=== PATIENT | male | born 1955 | race Caucasian/White ===

== ENCOUNTER 2022-08-06 17:54 | Emergency (ER) | payer MEDICARE, BC, SELFPAY ==
--- NOTE | ~2022-08-06 | CT_ITS ---
EXAMINATION: CT abdomen pelvis w con DATE: 08/06/2022 19:21 INDICATION: Diffuse abdominal pain, nausea and vomiting TECHNIQUE: Computed tomography (CT) of the abdomen and pelvis was performed with 100 mL Omnipaque-350 intravenous contrast. Automated exposure control and iterative reconstruction technique were employe d. The dose-length product was 551.06 mGy-cm. COMPARISON: CT abdomen dated 04/29/[address] dated 09/14/2018 FINDINGS: Mild to moderate emphysema at the lung bases. No significant change in a 6 mm pleural-based nodule at the periphery of the right middle lobe. Heart size is normal. No pericardial or pleural effusion. Li francie, gallbladder and pancreas are normal. Splenic calcifications consistent with old granulomatous di sease. Chronic nodular thickening of the bilateral adrenal glands which could be due to adrenal hyper plasia or multiple small adenomas. Multiple bilateral renal cysts measuring up to 2.7 cm the left kid juan. Chronic moderate right hydroureteronephrosis with dilation of the tortuous proximal right ureter extending to the level L4-L5 where it lies along side a prior aortic bypass graft. There are several nonobstructing bilateral renal stones, the largest measuring 4 mm in the left kidney. There is chronic aneurysmal dilation of the abdominal aorta which measures up to 4.6 cm diameter at t he level of the renal arteries. There are multiple internal curvilinear calcifications which suggests a prior dissection. There is complete thrombosis of the aorta beginning immediately caudal to the le jesus of the takeoff of the bilateral contrast opacified renal arteries. There is partially collapsed a nd thrombosed aortobiiliac stent graft which is unchanged since 2008. A previously patent more anteri or graft which extend to the left iliac artery bifurcation also now appears collapsed and thrombosed. A prior femoral to femoral bypass graft is been removed. There is a thrombosed bypass graft extendin g along the right chest and abdominal wall to the right common femoral artery which is new since 2008 but which can be seen on CT dated 06/17/2016. The bilateral common, internal and external iliac arteri es are tiny and unable to assess whether the opacified with contrast. Contrast is seen resupplying maryana th of the common femoral arteries via the bilateral hypogastric arteries. Focal mild dilation of the small bowel associated with small bowel anastomosis in the left abdomen. N o dilation of small bowel not directly associated with an anastomosis to suggest obstruction. Normal appendix. Bladder is normal. Prostatomegaly. No free intraperitoneal gas or fluid. There are multiple prominent mesenteric lymph nodes, the largest measuring up to 1.2 cm maximal short axis diameter and which may be reactive. Small fat-containing bilateral inguinal hernias moderate lumbar spondylosis. L5 laminectomy with 6 mm anterolisthesis L5 on S1 and instrumented posterior spinal fusion with bilat eral vertical marilyn and pedicle screw fixation at L5-S1. IMPRESSION: 1. No bowel obstruction or other acute intra-abdominal/pelvic process. 2. 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 Get seen are ch ronically thrombosed aortobiiliac stents, aortic bypass graft and right axillary femoral bypass graft with resupply to the bilateral common femoral arteries appearing to be supplied via the bilateral hy pogastric arteries. 3. Mild to moderate emphysema. 4. Bilateral nonobstructing nephrolithiasis with chronic moderate right hydroureteronephrosis but wit hout associated delayed nephrogram with no evident stone at the transition point which occurs along s gin the aortic bypass graft and may be related to the prior surgery. Reviewed, dictated and finalized at loc
[2022-08-06 17:59] VITALS: BP 114/80; PULSE 115; RESP 18; TEMP 36.6; O2SAT 97
--- NOTE | 2022-08-06 18:11 | PC.NURSE ---
Had emesis upon arrival to room. Pt states he feels better after vomiting. Reports this is the first time he has vomited since pain started.
[2022-08-06] MEDS: SODIUM CHLORIDE 0.9% IV 1,000 ML 999 ML IV CONT (18:23)
--- NOTE | 2022-08-06 18:23 | ED.ABDPAIN ---
HPI - Abdominal Pain General Chief Complaint: Abdominal Pain Stated Complaint: cough/congestion/runny nose with abdominal pain Time Seen by Provider: 08/06/22 18:04 History of Present Illness HPI narrative: Patient is a 66-year-old male with a complicated past medical history and numerous abdominal and vascular surgeries here due to nausea, vomiting, abdominal pain x2 days. Patient states he has been unable to tolerate any p.o. due to nausea and has had very little oral intake. Pain is mild but diffuse across his abdomen and is described as a cramp, coming in waves. Patient did vomit a large amount in the waiting room and he states his abdominal pain has improved somewhat. Reports some diarrhea. Attempted some Tums without relief. Has had no fevers, chills, chest pain, shortness of breath. Has been congested with a runny nose prior to onset of vomiting. Related Data Home Medications Medication Instructions Recorded Confirmed aspirin 81 mg tablet,delayed 81 mg PO DAILY 05/01/19 11/11/19 release gabapentin 600 mg tablet mg TID 08/06/22 Allergies Allergy/AdvReac Type Severity Reaction Status Date / Time No Known Allergies Allergy Unknown Verified 08/06/22 18:07 Review of Systems Review of Systems: Gen: Denies fevers or chills Eyes: Denies eye pain or visual change ENT: Denies congestion Respiratory: Denies shortness of breath or cough CV: Denies chest pain or palpitations GI: Reports abdominal pain, nausea and vomiting and diarrhea : denies burning, urgency, frequency or hematuria Musculoskeletal: Denies back pain or muscle pain Neuro: Denies numbness, tingling, weakness or focal weakness Skin: Denies rash Except as documented, all other systems reviewed and negative [facility] Family History Family History (Updated 09/28/16 @ 13:26 by DOCTOR UNKNOWN) Other Diabetes mellitus Family history of arthritis Social History Social History Smoking status: Former smoker Smoking end date: 03/13/15 Alcohol intake: never Exam Narrative: APPEARANCE: Uncomfortable appearing, actively vomiting Head: Normocephalic and atraumatic. EYES: PERRLA/EOMI, conjunctivae clear NOSE: No nasal drainage EARS: External ear normal in appearance THROAT: Oropharynx is clear. Mucous membranes are moist. NECK: Supple. No adenopathy, no masses. RESPIRATORY: Airway patent, respirations nonlabored. Clear to auscultation bilaterally, no rales, rhonchi, wheezing. CARDIOVASCULAR: Regular rate and rhythm without murmurs, rubs, or gallops. ABDOMINAL: Normoactive bowel sounds. Soft, nontender, nondistended. No rebound tenderness or guarding. MUSCULOSKELETAL: Status post right AKA NEURO: Normal speech. No focal neurologic deficits. SKIN: Skin is warm and dry. No rashes. PSYCHIATRIC: Normal affect/mood. Course Vital Signs Vital signs: Vital Signs Temperature 97.8 F 08/06/22 17:59 Pulse Rate 115 H 08/06/22 17:59 Respiratory Rate 18 08/06/22 17:59 Blood Pressure 114/80 08/06/22 17:59 Pulse Oximetry 97 08/06/22 17:59 Oxygen Delivery Room Air 08/06/22 17:59 Temperature 97.8 F 08/06/22 17:59 Pulse Rate 64 08/06/22 21:04 Respiratory Rate 18 08/06/22 21:04 Blood Pressure 121/87 08/06/22 21:04 Pulse Oximetry 97 08/06/22 17:59 Oxygen Delivery Room Air 08/06/22 17:59 MDM - Abdominal Pain MDM Narrative Medical decision making narrative: 66-year-old male here due to nausea vomiting and diarrhea x3 days, actively vomiting at time of examination. Slight tachycardic to 115 which did improve with IV fluid administrations, no abdominal tenderness on exam. CT abdomen pelvis without acute abdominal findings; does have evidence of numerous vascular procedures done on his abdominal aorta and an abdominal aortic aneurysm measuring 4.7 cm that is stable in size compared to previous examinations. It appears that several of his bypasses have clotted off but these are chronic findings an
[2022-08-06] MEDS: FAMOTIDINE 20 MG/2 ML VIAL IV PUSH (18:24)
[2022-08-06] MEDS: ONDANSETRON INJ 4 MG/2 ML VIAL IV PUSH (18:24)
[2022-08-06 18:30] LABS: Hematocrit 44.2 % (42.0-52.0); Hemoglobin 14.4 g/dL (14.0-18.0); Mean Corpuscular HGB Conc 32.6 g/dl (32-36); Mean Corpuscular Hemoglobin 26.5 pg (26-34); Mean Corpuscular Volume 81.4 fl (80-100); Mean Platelet Volume 9.8 fl (7.4-10.4); Platelet Count Result 293 k/mm3 (150-375); Red Blood Count 5.43 M/mm3 (4.6-6.20); Red Cell Distribution Width 17.9 % (11.5-14.5); White Blood Count 5.8 K/mm3 (4.5-10.0)
[2022-08-06 18:43] LABS: Lactic Acid Reflex 2.1 mmol/L (0.7-2.0)
[2022-08-06 18:44] LABS: Alanine Aminotransferase 21 U/L (6-50); Alkaline Phosphatase 121 U/L (38-126); Anion Gap 12 mmol/L (8-16); Aspartate Amino Transferase 25 U/L (17-59); Bilirubin,Total 0.5 mg/dL (0.2-1.3); Blood Urea Nitrogen 26 mg/dL (9-20); Calcium 8.9 mg/dL (8.4-10.2); Carbon Dioxide 27 mmol/L (22-30); Chloride 99 mmol/L (98-107); Estimated Glomerular Filt Rate > 60; Glucose 124 mg/dL (65-110); Lipase 83 U/L (23-300); Potassium 3.5 mmol/L (3.4-5.0); Sodium 138 mmol/L (137-145)
[2022-08-06 18:45] LABS: Magnesium 1.4 mg/dL (1.6-2.3)
[2022-08-06 19:08] LABS: Anisocytosis 2+ (NORMAL); Band Neutrophils Percent 39 % (0-6); Eosinophils Absolute Manual 0.05 K/mm3 (0.02-0.5); Eosinophils Percent Manual 1 % (0-4); Lymphocytes Absolute Manual 0.87 K/mm3 (1.1-4.5); Monocytes Absolute Manual 0.63 K/mm3 (0.1-0.90); Monocytes Percent Manual 11 % (3-9); Neutrophils Absolute Manual 4.23 K/mm3 (1.3-6.7); Neutrophils Percent Manual 34 % (46-73); Platelet Estimate Adequate (Adequate); Schistocytes None Seen (NORMAL); Total Cells Counted 100
[2022-08-06 19:14] LABS: Influenza A QL RT-PCR Negative (Negative); Influenza B QL RT-PCR Negative (Negative); SARS-CoV-2 RNA PCR Negative (Negative)
[2022-08-06 19:49] LABS: Appearance Urine Clear (Clear); Bacteria Urine None Seen /hpf; Bilirubin Urine Negative (Negative); Blood Urine Trace (Negative); Color Urine Yellow (Yellow); Glucose Urine UA Negative (Negative); Ketones Urine Trace mg/dL (Negative); Leukocyte Esterase Ur Negative LEU/UL (Negative); Nitrate Urine Negative (Negative); Non Pathogenic Casts 0-2; Protein Urine 3+ mg/dL (Negative); Specific Grav Ur 1.024 (1.001-1.035); Squamous Epithelial Cell Urine None seen /hpf (Few); Urobilinogen Urine 0.2 mg/dL (<2.0); WBC Urine 0-5 /hpf; pH Urine 5.5 (5.0-9.0)
[2022-08-06 20:01] LABS: Add Urine Microscopic? YES
[2022-08-06] MEDS: DICYCLOMINE HCL INJ 20 MG/2 ML VIAL IM (20:14)
[2022-08-06 21:04] VITALS: BP 121/87; PULSE 64; RESP 18
[2022-08-06 21:27] LABS: Reflex Lactic Acid Yes or No Add Lactic
== END 2022-08-06 21:06 | disposition home or self-care (01) ==
PROVIDERS: Emergency Provider Physician Assistant; PCP Nurse Practitioner
DX: K52.9 Noninfective gastroenteritis and colitis, unspecified (principal); Z20.822 Contact with and (suspected) exposure to COVID-19
CPT/HCPCS: 36415; 74177; 80053; 81001; 83605; 83690; 83735; 85025; 87636; 96361; 96372; 96374; 96375; 99284; J0500; J2405; J7030; Q9967

== ENCOUNTER 2024-02-27 01:32 | Day surgery (SDC) | payer OTHER, MEDICARE, SELFPAY ==
[2024-02-21 14:20] VITALS: BMI 28.9
--- NOTE | 2024-02-21 14:49 | PC.NURSE ---
Spoke with PATIENT regarding medication PLAVIX. PATIENT verbalizes understanding that the last dose is to be taken on 02/22/2024 and the Endoscopist will instruct them when to restart after the procedure.
[2024-02-27 08:48] VITALS: BP 136/84; PULSE 79; RESP 16; TEMP 36.6; O2SAT 99
--- NOTE | 2024-02-27 08:51 | P.PNAN_ITS ---
Anes - Initial Pre Proc Eval Procedure: Operation Date: 02/27/24 09:30 Proposed Procedures p Screening Colonoscopy - Alex Dickerson MD Date/Time: 02/27/24 08:51 Surgeon: Alex Dickerson MD Pre Op Diagnosis: Neoplasm screening Patient Data Age: 68 Gender: M Height: 1.73 m Weight: 86.3 kg Allergies Allergy/AdvReac Type Severity Reaction Status Date / Time No Known Allergies Allergy Unknown Verified 02/27/24 08:44 Home Medications ?Medication ?Instructions ?Recorded ?Confirmed ?Type aspirin 81 mg tablet,delayed 81 mg PO DAILY 05/01/19 02/27/24 History release atorvastatin 80 mg tablet 80 mg PO DAILY #90 tabs 09/27/19 02/27/24 Rx hydrochlorothiazide 25 mg tablet 25 mg PO DAILY #90 tabs 12/02/19 02/27/24 Rx losartan 100 mg tablet 100 mg PO DAILY #90 tabs 12/02/19 02/27/24 Rx amlodipine 10 mg tablet 10 mg PO DAILY #90 tabs 12/23/19 02/27/24 Rx clopidogrel 75 mg tablet 75 mg PO DAILY #90 tabs 12/23/19 02/27/24 Rx metformin 500 mg tablet 500 mg PO BID #180 tabs 01/29/20 02/27/24 Rx metoprolol tartrate 50 mg tablet See Rx Instructions .Route 01/29/20 02/27/24 Rx .COMPLEX #180 tabs omeprazole 40 mg capsule,delayed 40 mg PO DAILY #90 caps 01/29/20 02/27/24 Rx release dicyclomine 10 mg capsule 10 mg PO TID PRN abdominal pain 08/06/22 02/21/24 Rx #10 caps gabapentin 600 mg tablet 600 mg PO TID 08/06/22 02/27/24 History clobetasol 0.05 % topical ointment 1 applic topical BID PRN eczema 02/21/24 02/21/24 History Patient hx anesthesia problems: none Family hx anesthesia problems: none Results Review: All pre-operative results and documents have been reviewed as part of the pre- operative evaluation. [facility] Past Medical History Medical History Essential (primary) hypertension Dyslipidemia History of tobacco use Surgical History Surgical History (Updated 02/27/24 @ 08:51 by Ronak Bernardo MD) History of abdominal aortic aneurysm repair History of right above knee amputation Family History Family History Other Diabetes mellitus Family history of arthritis Social History Social History (Updated 02/27/24 @ 08:54 by Ronak Bernardo MD) Smoking packs per day: 1 Smoking cigarettes per day: 20.0 Years smoked: 50 Smoking pack-years: 50.00 Smoking status: Current every day smoker Tobacco type: cigarettes Alcohol intake: current Substance use: current Substance use type: marijuana Other substance usage details: SMOKE DAILY REC. Living arrangements: with family Spiritual care concerns: No Anes - Eval Final PreProcedure Day of Procedure 02/27/24 08:51 Patient weight: overweight Heart: regular rate and rhythm Lungs: clear to auscultation Airway: Mallampati scale class II Neurological: alert and oriented Last oral intake: >/= 8 hours ASA classification: IV Emergent: no Anesthetic plan: proceed Anesthesia type and monitoring: general GIVS and standard monitoring Results Review: All pre-operative results and documents have been reviewed as part of the pre- operative evaluation. Informed Consent: The patient's anesthetic plan and its attendant risks and benefits were discussed with the patient/family/POA. Questions were solicited and answers provided to the satisfaction of the patient/family/POA.
[2024-02-27 08:53] LABS: Glucose Point of Care 131 mg/dl (65-105)
[2024-02-27] MEDS: LACTATED RINGERS 1,000 ML 150 ML IV CONT (08:58)
--- NOTE | 2024-02-27 09:07 | PM.HPGS ---
History of Present Illness History of Present Illness Consent: Risks, benefits, and alternatives have been discussed and questions answered. Patient agrees to proceed with procedure. Chief complaint: Neoplasm screening Narrative: Jericho Moctezuma is a 68 year old male with colon polyp in 2019 Review of Systems Review of Systems: All systems reviewed & are unremarkable except as noted in HPI and below PMFSH Past Medical History Medical History Colon polyp Essential (primary) hypertension Dyslipidemia History of tobacco use Surgical History Surgical History (Updated 02/27/24 @ 08:51 by Ronak Bernardo MD) History of abdominal aortic aneurysm repair History of right above knee amputation Family History Family History Other Diabetes mellitus Family history of arthritis Social History Social History (Updated 02/27/24 @ 08:54 by Ronak Bernardo MD) Smoking packs per day: 1 Smoking cigarettes per day: 20.0 Years smoked: 50 Smoking pack-years: 50.00 Smoking status: Current every day smoker Tobacco type: cigarettes Alcohol intake: current Substance use: current Substance use type: marijuana Other substance usage details: SMOKE DAILY REC. Living arrangements: with family Spiritual care concerns: No Meds Home Medications and Allergies Home Medications ?Medication ?Instructions ?Recorded ?Confirmed ?Type aspirin 81 mg tablet,delayed 81 mg PO DAILY 05/01/19 02/27/24 History release atorvastatin 80 mg tablet 80 mg PO DAILY #90 tabs 09/27/19 02/27/24 Rx hydrochlorothiazide 25 mg tablet 25 mg PO DAILY #90 tabs 12/02/19 02/27/24 Rx losartan 100 mg tablet 100 mg PO DAILY #90 tabs 12/02/19 02/27/24 Rx amlodipine 10 mg tablet 10 mg PO DAILY #90 tabs 12/23/19 02/27/24 Rx clopidogrel 75 mg tablet 75 mg PO DAILY #90 tabs 12/23/19 02/27/24 Rx metformin 500 mg tablet 500 mg PO BID #180 tabs 01/29/20 02/27/24 Rx metoprolol tartrate 50 mg tablet See Rx Instructions .Route 01/29/20 02/27/24 Rx .COMPLEX #180 tabs omeprazole 40 mg capsule,delayed 40 mg PO DAILY #90 caps 01/29/20 02/27/24 Rx release dicyclomine 10 mg capsule 10 mg PO TID PRN abdominal pain 08/06/22 02/21/24 Rx #10 caps gabapentin 600 mg tablet 600 mg PO TID 08/06/22 02/27/24 History clobetasol 0.05 % topical ointment 1 applic topical BID PRN eczema 02/21/24 02/21/24 History Allergies Allergy/AdvReac Type Severity Reaction Status Date / Time No Known Allergies Allergy Unknown Verified 02/27/24 08:44 Vital Signs Vital Signs - 24 hr 02/27/24 08:48 Temperature 97.8 F Pulse Rate 79 Respiratory Rate 16 Blood Pressure 136/84 Pulse Oximetry 99 Oxygen Delivery Room Air Exam Const: General: comfortable and no acute distress HENMT: Face/Nose/Sinus: Normal nares present Eyes: General: appearance normal, both eyes and all related structures Neck: Neck: no JVD Resp: Auscultation: clear to auscultation bilaterally Cardio: Rate: regular rate Rhythm: regular rhythm GI: Inspection: non-distended GI Palp: Yes Soft to palpation Skin: General skin exam: normal color Neuro: General: gait normal Speech: normal speech Extrem: General: normal to inspection Psych: Mental Status: mental status grossly normal Assessment and Plan Assessment and plan (1) Colon polyp: Code(s): K63.5 - Polyp of colon Status: Acute Assessment and Plan: colonoscopy
[2024-02-27 09:28] VITALS: BP 112/78; PULSE 76; RESP 18; O2SAT 96
[2024-02-27 09:38] VITALS: BP 106/73; PULSE 78; RESP 18; O2SAT 97
[2024-02-27 09:48] VITALS: BP 134/84; PULSE 77; RESP 20; O2SAT 97
== END 2024-02-27 09:59 | disposition home or self-care (01) ==
PROVIDERS: PCP Nurse Practitioner; Visit Provider Internal Medicine Gastroenterology
PROC: 0DJD8ZZ Inspection of Lower Intestinal Tract, Via Natural or Artificial Opening Endoscopic (ICD-10-PCS; CPT 45378; principal; 2024-02-27 09:30)
DX: Z12.11 Encounter for screening for malignant neoplasm of colon (principal); D12.0 Benign neoplasm of cecum; D12.3 Benign neoplasm of transverse colon; D12.8 Benign neoplasm of rectum; K64.8 Other hemorrhoids; K57.30 Diverticulosis of large intestine without perforation or abscess without bleeding; E78.5 Hyperlipidemia, unspecified; I10 Essential (primary) hypertension; F17.210 Nicotine dependence, cigarettes, uncomplicated; F12.90 Cannabis use, unspecified, uncomplicated; Z79.82 Long term (current) use of aspirin; Z79.02 Long term (current) use of antithrombotics/antiplatelets; Z79.84 Long term (current) use of oral hypoglycemic drugs; Z98.890 Other specified postprocedural states; Z89.611 Acquired absence of right leg above knee; Z86.79 Personal history of other diseases of the circulatory system
CPT/HCPCS: 45385; 82948; 88305; J2704; J7120

== ENCOUNTER 2024-03-21 11:40 | Emergency (ER) | payer OTHER, MEDICARE, SELFPAY ==
[2024-03-21] VITALS (22 sets, daily range): BP systolic 151–184; BP diastolic 70–95; PULSE 84–120; RESP 17–29; TEMP 36.6; O2SAT 89–96
--- NOTE | ~2024-03-21 | XR_ITS ---
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 RESULT: Lines, tubes, and devices: Aortic stent. Lungs and pleura: Mild diffuse emphysematous/interstitial change. Minimal left basilar streaky opaci ties, otherwise clear. Scattered calcified and noncalcified nodules, likely granulomas. Cardiomediastinal silhouette: Stable. Other: No acute osseous or upper abdominal finding. IMPRESSION: No acute cardiopulmonary process. Reviewed, dictated and finalized at location K. DESIGN DRAFTER
--- NOTE | ~2024-03-21 | CT_ITS ---
EXAMINATION: CTA abdomen pelvis DATE: 03/21/2024 13:07 INDICATION: Abdominal aortic dissection. TECHNIQUE: Computed tomographic angiography (CTA) of the abdomen and pelvis was performed with 100 mL Omnipaque-350 intravenous contrast. Automated exposure control and iterative reconstruction techniqu e were employed. The dose-length product was 469.60 mGy-cm. Maximum intensity projection 3D-reconstru ctions of the aorta and other arteries were constructed by the technologist on a separate workstation . COMPARISON: CT abdomen and pelvis 08/06/2022 FINDINGS: The visualized portions of the lung bases demonstrate mild atelectasis. There is a stable 6 mm nodule in right middle lobe, likely benign. There is a stable 4 mm nodule in right lower lobe, li eusebia benign. No pleural effusion. The heart size is normal. No pericardial effusion. The liver, gallb ladder, and pancreas are normal. Calcifications in the spleen are consistent with old granulomatous d isease. There is chronic thickening of the adrenal glands, likely benign. There are cysts in the kidn eys measuring up to 2.6 cm on the left. There is a 3 mm stone right kidney. There is mild right hydro nephrosis and proximal hydroureter to the level of surgical changes in the retroperitoneum. There are approximately 6 stones in left kidney measuring up to 5 mm . There is a 4.6 cm fusiform aneurysm of juxtarenal aorta. There is total occlusion of abdominal aorta distal to the renal arteries. There is no significant stenosis of celiac axis, superior mesenteric artery or the renal arteries. There is re constitution of flow at the junction of the superficial femoral arteries and deep femoral arteries bi laterally. There are arterial collaterals in the pelvis. There are bilateral inguinal hernias contain ing fat. 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 There is no ascites. T here are no pathologically enlarged lymph nodes. There are changes of posterior fusion procedure at L 5-S1 with pedicle screws. There is severe lumbar spondylosis. IMPRESSION: 1. 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 2. Chronic mild right hydronephrosis and proximal hydroureter to the level of surgical changes in the retroperitoneum. Reviewed, dictated and finalized at location A. HANDLE ASSEMBLER IMPRESSION: 1. 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 Stable 4. 6 cm fusiform aneurysm of juxtarenal aorta. 2. Chronic mild right hydronephrosis and proximal hydroureter to the level of s urgical changes in the retroperitoneum.
[2024-03-21] MEDS: LACTATED RINGERS 1,000 ML 999 ML IV CONT ×2 (12:13→12:40)
[2024-03-21 12:16] LABS: Hematocrit 42.8 % (42.0-52.0); Hemoglobin 13.7 g/dL (14.0-18.0); Mean Corpuscular Hemoglobin 24.7 pg (26-34); Mean Corpuscular Volume 77.1 fl (80-100); Platelet Count Result 268 k/mm3 (150-375); Red Blood Count 5.55 M/mm3 (4.6-6.20); Red Cell Distribution Width 19.6 % (11.5-14.5); White Blood Count 5.3 K/mm3 (4.5-10.0)
[2024-03-21 12:26] LABS: Alanine Aminotransferase 15 U/L (6-50); Albumin Level 3.5 g/dL (3.5-5.1); Alkaline Phosphatase 110 U/L (38-126); Anion Gap 10 mmol/L (4-12); Aspartate Amino Transferase 22 U/L (17-59); Bilirubin,Total 0.5 mg/dL (0.2-1.3); Blood Urea Nitrogen 35 mg/dL (9-20); Calcium 8.5 mg/dL (8.4-10.2); Carbon Dioxide 28 mmol/L (22-30); Chloride 99 mmol/L (98-107); Estimated CRCL calculation 63 ml/min; Estimated Glomerular Filt Rate > 60; Glucose 132 mg/dL (65-110); Lipase 83 U/L (23-300); Potassium 3.3 mmol/L (3.4-5.0); Sodium 137 mmol/L (137-145)
[2024-03-21 12:32] LABS: Influenza A QL RT-PCR Positive (Negative); Influenza B QL RT-PCR Negative (Negative); RSV RNA, RT-PCR Negative (Negative); SARS-CoV-2 RNA PCR Negative (Negative)
[2024-03-21] MEDS: diphenhydrAMINE HCl INJ 50 MG/ML VIAL 25 MG IV PUSH (12:40)
[2024-03-21] MEDS: METOCLOPRAMIDE HCL INJ 10 MG/2 ML VIAL IV PUSH (12:41)
[2024-03-21] MEDS: MORPHINE SULFATE (*CRX) 4 MG/ML INJ IV PUSH (12:41)
--- NOTE | 2024-03-21 12:42 | ED_ITS ---
HPI - URI/Sore Throat General Chief Complaint: Upper Respiratory Infection Stated Complaint: I have a super bad cold Time Seen by Provider: 03/21/24 12:02 History of Present Illness HPI Narrative: 68-year-old male with a past medical history including abdominal aortic aneurysm and dissection status post repair, right ixcaj-ool-[id number] amputation, multiple vascular procedures in his abdomen. Patient presents to the emergency department today with a chief complaint of flu-like symptoms including cough, congestion, vomiting, generalized weakness, lack of appetite and persistent nausea. Denies any fever diarrhea, no chest pain or shortness of breath. He states his abdomen hurts occasionally but not to the degree that he felt when he had his vascular emergencies. His states that there have been sick contacts. Patient thinks he has a really bad cold or the flu. Related Data Home Medications ?Medication ?Instructions ?Recorded ?Confirmed ?Last Taken ?Type aspirin 81 mg tablet,delayed 81 mg PO DAILY 05/01/19 02/27/24 02/26/24 History release gabapentin 600 mg tablet 600 mg PO TID 08/06/22 02/27/24 02/27/24 History clobetasol 0.05 % topical ointment 1 applic topical BID PRN eczema 02/21/24 02/21/24 Unknown History Allergies Allergy/AdvReac Type Severity Reaction Status Date / Time No Known Allergies Allergy Unknown Verified 03/21/24 11:59 Review of Systems 2 Review of Systems: As reviewed [facility] Past Medical History Medical History Colon polyp Essential (primary) hypertension Dyslipidemia History of tobacco use Surgical History Surgical History History of abdominal aortic aneurysm repair History of right above knee amputation Family History Family History Other Diabetes mellitus Family history of arthritis Social History Social History Smoking packs per day: 1 Smoking cigarettes per day: 20.0 Years smoked: 50 Smoking pack-years: 50.00 Smoking status: Current every day smoker Tobacco type: cigarettes Alcohol intake: current Substance use: current Substance use type: marijuana Other substance usage details: SMOKE DAILY REC. Living arrangements: with family Spiritual care concerns: No Exam 2 Narrative: GENERAL: Ill-appearing, not in any acute distress, able to answer all questions HEAD: [Normocephalic, atraumatic.] EYES: [PERRLA and EOMI.] ENT: Nares clear, no rhinorrhea or epistaxis. Mucous membranes moist. NECK: Supple. CHEST: [Clear to auscultation. No respiratory distress.] HEART: [Regular rate and rhythm]. No murmur heard. [Normal peripheral pulses.] ABDOMEN: Soft, nondistended, mildly tender to palpation diffusely but no focality, no signs of peritonitis. Multiple previous abdominal surgical scars, [No rigidity or guarding] EXTREMITIES: Right hikno-cat-zwla amputation, no edema in the left leg SKIN: Warm, dry, no rash. NEURO: [No focal deficits]. Alert and oriented [x3.] PSYCH: [Normal mood and affect.] Course Vital Signs Vital signs: Vital Signs Temperature 36.6 C 03/21/24 11:45 Pulse Rate 109 H 03/21/24 11:45 Respiratory Rate 20 03/21/24 11:45 Blood Pressure 154/93 H 03/21/24 11:45 Pulse Oximetry 92 03/21/24 11:45 Oxygen Delivery Room Air 03/21/24 11:45 Temperature 36.6 C 03/21/24 11:45 Pulse Rate 94 03/21/24 15:17 Respiratory Rate 25 H 03/21/24 15:17 Blood Pressure 184/95 H 03/21/24 15:17 Pulse Oximetry 95 03/21/24 15:17 Oxygen Delivery Room Air 03/21/24 12:06 MDM - URI/Sore Throat MDM Narrative Medical decision making narrative: 68-year-old male with history of multiple vascular emergencies including previous abdominal aortic aneurysm and dissection status post repair. He presents today with flu-like symptoms including generalized weakness, vomiting, lack of appetite, nausea and mild abdominal pain. Denies any chest pain or difficulty breathing. His examination shows a mildly tender abdomen with multiple previous surgical scars and a right-sided cmkgl-orv-dldk amputation is chronic. He is slightly tachycardic with a pulse of 109 but no tachypnea, fever or hypoxia. Patient does appear ill and uncomfortable but not in any distress. He is retching throughout the examination but no vomiting. Will provide him with Zofran, morphine in fluid hydration while we obtain or workup. COVID fluid RSV swabs were obtained, chest x-ray, EKG, CBC, CMP, CT angiography of the abdomen pelvis was obtained secondary to his significant comorbidities although suspicion for acute intra-abdominal emergency is less likely at this time is a did test positive for influenza A which would explain his symptomatology as well. Workup shows no leukocytosis or significant anemia. Normal platelet count. Electrolytes largely within normal limits, creatinine normal, normal glucose. Normal CMP. Urinalysis shows no signs of infection. Influenza tested positive. CT angiography shows chronic occlusion of the abdominal aorta, stable aneurysm fusiform, chronic mild hydronephrosis, no acute interval changes from previous CT in July of 2022. Patient's chest x-ray shows no acute cardiopulmonary process. EKG shows normal sinus rhythm, no signs of ST segment elevations, depressions or inversions. Patient re-evaluated after fluid hydration and symptom controlling medications including Reglan, diphenhydramine, morphine. He felt significantly improved and was given his workup diagnosis of influenza A with no other acute process or emergent concerns currently on going. We went over the timeline of his symptoms and he is outside a therapeutic window for Tamiflu initiation. He will be sent home with symptom controlling medications and close outpatient follow-up as well as strict return precautions. Patient verbalized understanding and he was safe for discharge home at this time for Medical Records Attestation: I reviewed the patient's medical records. Lab Data Attestation: I reviewed the patient's lab results. 03/21/24 12:08 03/21/24 12:08 Labs: Lab Results 03/21/24 03/21/24 03/21/24 Range/Units 11:47 12:08 14:31 WBC 5.3 (4.5-10.0) K/mm3 RBC 5.55 (4.6-6.20) M/mm3 Hgb 13.7 L (14.0-18.0) g/dL Hct 42.8 (42.0-52.0) % MCV 77.1 L (80-100) fl MCH 24.7 L (26-34) pg MCHC 32.0 (32-36) g/dl RDW 19.6 H (11.5-14.5) % Plt Count 268 (150-375) k/mm3 MPV 10.0 (7.4-10.4) fl Immature Gran % (Auto) Not Reportable Neut % (Auto) Not Reportable Lymph % (Auto) Not Reportable [place] % (Auto) Not Reportable Eos % (Auto) Not Reportable Baso % (Auto) Not Reportable Lymph # (Auto) Not Reportable [place] # (Auto) Not Reportable Eos # (Auto) Not Reportable Baso # (Auto) Not Reportable Abs Immat Gran (auto) Not Reportable Absolute Neuts (auto) Not Reportable Absolute Nucleated RBC Not Reportable Total Counted 100 Neutrophils % (Manual) 38 L (46-73) % Band Neutrophils % 26 H (0-6) % Lymphocytes % (Manual) 26.0 (18-44) % Monocytes % (Manual) 9 (3-9) % Eosinophils % (Manual) 1 (0-4) % Nucleated RBC % Not Reportable Abs Neuts (Manual) 3.39 (1.3-6.7) K/mm3 Abs Lymphs (Manual) 1.37 (1.1-4.5) K/mm3 Abs Monocytes (Manual) 0.47 (0.1-0.90) K/mm3 Absolute Eos (Manual) 0.05 (0.02-0.50) K/mm3 Platelet Estimate Adequate (Adequate) Large Platelets Present Schistocytes None seen Sodium 137 (137-145) mmol/L Potassium 3.3 L (3.4-5.0) mmol/L Chloride 99 (98-107) mmol/L Carbon Dioxide 28 (22-30) mmol/L Anion Gap 10 (4-12) mmol/L BUN 35 H (9-20) mg/dL Creatinine 0.97 (0.7-1.3) mg/dL Estim Creat Clear Calc 63 ml/min Estimated GFR > 60 (59 - ) Glucose 132 H (65-110) mg/dL Calcium 8.5 (8.4-10.2) mg/dL Total Bilirubin 0.5 (0.2-1.3) mg/dL AST 22 (17-59) U/L ALT 15 (6-50) U/L Alkaline Phosphatase 110 (38-126) U/L Total Protein 7.0 (6.3-8.2) g/dL Albumin 3.5 (3.5-5.1) g/dL Lipase 83 (23-300) U/L Urine Color Yellow (Yellow) Urine Appearance Clear (Clear) Urine pH 6.5 (5.0-9.0) Ur Specific [place] 1.035 (1.001-1.035) Urine Protein 3+ H (Negative) mg/dL Urine Glucose (UA) Trace H (Negative) mg/dL Urine Ketones Negative (Negative) mg/dL Ur Blood (Man) 1+ H (Negative) Urine Nitrate Negative (Negative) Urine Bilirubin Negative (Negative) Urine Urobilinogen 0.2 (<2.0) mg/dL Leukocyte Esterase Rfl Negative (Negative) AVERY/UL Urine RBC 3-5 H (0-2) /hpf Urine WBC 0-5 (0-3) /hpf Ur Squamous Epith Cells None seen (Few) /hpf Urine Bacteria None seen /hpf Urine Casts 3-5 Influenza A (RT-PCR) Positive A (Negative) Influenza B (RT-PCR) Negative (Negative) RSV (RT-PCR) Negative (Negative) SARS-CoV-2 RNA (RT-PCR) Negative (Negative) Imaging Data Attestation: I personally reviewed and interpreted this imaging study as follows: My impression: Impressions Abdomen/Pelvis CTA 03/21/24 13:15 IMPRESSION: 1. 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 2. Chronic mild right hydronephrosis and proximal hydroureter to the level of surgical changes in the retroperitoneum. Chest X-Ray 03/21/24 15:28 IMPRESSION: No acute cardiopulmonary process. Discharge Plan Discharge Clinical Impression: Influenza A, Increased nausea and vomiting, Abdominal pain Patient Disposition: Home, Self-Care Condition: Stable Instructions: Antibiotic Form, Influenza (ED) Additional Instructions: Your symptoms are likely secondary to influenza a which you tested positive for. Follow-up with regular doctor in vascular specialist on outpatient basis. We will send you home with some controlling medications for your nausea vomiting. Return with any new or worsening concerns at any time. Based on the duration of your symptoms you would not benefit from Tamiflu or oseltamivir. Follow-up with regular doctor. Patient Language: Nepali Prescriptions: New dicyclomine 20 mg tablet 20 mg PO TID PRN (Reason: abdominal pain) Qty: 14 0RF ondansetron 4 mg tablet,disintegrating 4 mg PO Q8H PRN (Reason: nausea and vomiting) Qty: 10 0RF No Action gabapentin 600 mg Tablet 600 mg PO TID dicyclomine 10 mg capsule 10 mg PO TID PRN (Reason: abdominal pain) Qty: 10 0RF clobetasol 0.05 % ointment 1 applic TOPICAL BID PRN (Reason: eczema) aspirin 81 mg tablet,delayed release (DR/EC) 81 mg PO DAILY atorvastatin 80 mg tablet 80 mg PO DAILY Qty: 90 1RF losartan 100 mg tablet 100 mg PO DAILY Qty: 90 0RF hydrochlorothiazide 25 mg tablet 25 mg PO DAILY Qty: 90 1RF clopidogrel 75 mg tablet 75 mg PO DAILY Qty: 90 1RF amlodipine 10 mg tablet 10 mg PO DAILY Qty: 90 1RF omeprazole 40 mg capsule,delayed release(DR/EC) 40 mg PO DAILY Qty: 90 1RF metoprolol tartrate 50 mg tablet See Rx Instructions .ROUTE .COMPLEX Qty: 180 1RF Dose Instruction: TAKE 1 TABLET(50 MG) BY MOUTH TWICE DAILY WITH MEALS Rx Instructions: TAKE 1 TABLET(50 MG) BY MOUTH TWICE DAILY WITH MEALS metformin 500 mg tablet 500 mg PO BID Qty: 180 1RF Rx Instructions: Take 1 tab by oral route 2 times every day with morning and evening meals. Follow-up/Referrals: Gladys,YADI Kim [Primary Care Provider] - Time of Disposition: 15:15
--- NOTE | 2024-03-21 12:49 | ECG_ITS ---
Test Date: 2024-03-21 13:42:31 Measurements Intervals [place] Rate: 93 P: 0 HI: 0 QRS: 127 QRSD: 96 T: 105 QT: 368 QTc: 458 Interpretive Statements ATRIAL FIBRILLATION LEFT POSTERIOR FASCICULAR BLOCK [QRS AXIS > 109, INFERIOR Q] No previous ECG available for comparison Electronically Signed On 03-22-2024 16:38:37 STAFFING BRANCH MANAGER by Arsen Cullen M.D.
[2024-03-21 13:10] LABS: Band Neutrophils Percent 26 % (0-6); Eosinophils Absolute Manual 0.05 K/mm3 (0.02-0.50); Eosinophils Percent Manual 1 % (0-4); Large Platelets Present; Lymphocytes Absolute Manual 1.37 K/mm3 (1.1-4.5); Monocytes Absolute Manual 0.47 K/mm3 (0.1-0.90); Monocytes Percent Manual 9 % (3-9); Neutrophils Absolute Manual 3.39 K/mm3 (1.3-6.7); Neutrophils Percent Manual 38 % (46-73); Platelet Estimate Adequate (Adequate); Schistocytes None Seen; Total Cells Counted 100
[2024-03-21 14:45] LABS: Add Urine Microscopic? YES; Appearance Urine Clear (Clear); Bacteria Urine None Seen /hpf; Bilirubin Urine Negative (Negative); Blood Urine 1+ (Negative); Color Urine Yellow (Yellow); Glucose Urine UA Trace mg/dL (Negative); Ketones Urine Negative (Negative); Leukocyte Esterase Ur Negative LEU/UL (Negative); Nitrate Urine Negative (Negative); Protein Urine 3+ mg/dL (Negative); Specific Grav Ur 1.035 (1.001-1.035); Squamous Epithelial Cell Urine None Seen /hpf (Few); Urobilinogen Urine 0.2 mg/dL (<2.0); WBC Urine 0-5 /hpf (0-3); pH Urine 6.5 (5.0-9.0)
== END 2024-03-21 15:52 | disposition home or self-care (01) ==
PROVIDERS: Emergency Medicine; Emergency Provider Student in an Organized Health Care Education/Training Program; PCP Nurse Practitioner
DX: J10.1 Influenza due to other identified influenza virus with other respiratory manifestations (principal); R11.2 Nausea with vomiting, unspecified; R10.9 Unspecified abdominal pain; Z20.822 Contact with and (suspected) exposure to COVID-19; I71.42 Juxtarenal abdominal aortic aneurysm, without rupture; I74.09 Other arterial embolism and thrombosis of abdominal aorta; I10 Essential (primary) hypertension; E78.5 Hyperlipidemia, unspecified; F17.210 Nicotine dependence, cigarettes, uncomplicated; Z86.0100 Personal history of colon polyps, unspecified; Z89.611 Acquired absence of right leg above knee; Z79.899 Other long term (current) drug therapy; N13.30 Unspecified hydronephrosis
CPT/HCPCS: 36415; 71045; 74174; 80053; 81001; 83690; 85025; 87637; 93005; 96361; 96374; 96375; 99284; J1200; J2270; J2765; J7120; Q9967